=== PATIENT | female | born 1985 | race Caucasian/White ===

== ENCOUNTER 2018-09-09 18:34 | Observation (INO) | payer SELFPAY ==
[2018-09-09] MEDS ORDERED: NA CHLORIDE 0.9% 1,000 ML ONE (19:57)
[2018-09-09 20:05] LABS: Absolute Lymphocytes (CBC) 2.2 K/uL (0.7-4.9); Absolute Monocytes 0.8 K/uL (0.1-1.3); Absolute Neutrophil 5.9 K/uL (1.8-8.0); Basophils % 0.4 % (0-1.3); Eosinophils % 3.1 % (0-4.4); Hematocrit 34.5 % (36.0-45.0); Lymphocytes % 23.6 % (15.3-44.8); MPV 7.9 fL (7.6-11.3); Monocytes % 8.7 % (3.3-12.3); RBC Red Blood Cell Count 3.63 M/uL (3.86-4.86)
[2018-09-09 20:20] LABS: ALT/SGPT 15 U/L (12-78); AST/SGOT 9 U/L (15-37); Albumin 3.1 g/dL (3.4-5.0); Alkaline Phosphatase 28 U/L (45-117); BUN Blood Urea Nitrogen 16 mg/dL (7-18); Bicarbonate 28 mmol/L (21-32); Bilirubin Direct < 0.1 mg/dL (0-0.2); Bilirubin Total 0.1 mg/dL (0.2-1.0); Glucose Level 92 mg/dL (74-106); Lipase 128 U/L (73-393); Protein, Total 6.7 g/dL (6.4-8.2); Sodium Level 141 mmol/L (136-145)
--- NOTE | 2018-09-09 21:06 | RAD REPORT ---
EXAM DESCRIPTION: CT - Abdomen Pelvis W Contrast - 09/09/2018 8:37 pm CLINICAL HISTORY: Abdominal pain with vomiting COMPARISON: none. TECHNIQUE: Computed axial tomography of the abdomen pelvis was obtained. 100 cc Isovue-300 was admin istered intravenously. Oral contrast was not requested which limits evaluation of bowel. All CT scans are performed using dose optimization technique as appropriate and may include automated exposure control or mA/KV adjustment according to patient size. FINDINGS: The gallbladder is distended. Gallbladder wall appears borderline thickened Hepatic periportal edema. Spleen, pancreas, adrenal and kidneys appear unremarkable. There is no evidence of diverticulitis. The appendix is not clearly visualized. Small umbilical hernia contains fat. Increased density is present within the herniated fat 2 centimeter left ovarian cyst without significant free fluid . Moderate amount of stool within the colon Wall of the gastric antrum appears thickened IMPRESSION: Gallbladder distention. Borderline gallbladder wall thickening. Thickening of the wall of the gastric antrum suspicious for gastritis. Stranding within the fat of the periumbilical hernia may indicate strangulation and should be correla shoaib clinically
--- NOTE | 2018-09-10 01:55 | ER ---
Nurse's Notes [facility] Name: Fay Luna Age: 32 yrs Sex: Female : 1985 Arrival Date: 09/09/2018 Time: 18:40 Bed 26 Private MD: Diagnosis: Abdominal and pelvic pain;Supraumbilical hernia with fat stranding in the periumbilical area Presentation: 09/09 19:18 Presenting complaint: Patient states: N/V constipation and upper abdominal pain and aj chest pain for 1 week. Dx with hiatal hernia, has not followed up with surgeon. Transition of care: patient was not received from another setting of care. Onset of symptoms was September 02, 2018. Risk Assessment: Do you want to hurt yourself or someone else? Patient reports no desire to harm self or others. Initial Sepsis Screen: Does the patient meet any 2 criteria? No. Patient's initial sepsis screen is negative. Does the patient have a suspected source of infection? No. Patient's initial sepsis screen is negative. Care prior to arrival: None. 19:18 Method Of Arrival: Ambulatory aj 19:18 Acuity: LORENZO 3 aj Triage Assessment: 19:20 General: Appears in no apparent distress. comfortable, Behavior is calm, cooperative, aj drowsy. Pain: Complains of pain in diaphragm, epigastric area, right upper quadrant and left upper quadrant. Neuro: Level of Consciousness is awake, alert, obeys commands, Oriented to person, place, time, situation, Appropriate for age. Cardiovascular: Capillary refill < 3 seconds in bilateral fingers Patient's skin is warm and dry. Respiratory: Airway is patent Respiratory effort is even, unlabored, Respiratory pattern is regular, symmetrical. GI: Reports upper abdominal pain, constipation, nausea. Derm: Skin is intact, is healthy with good turgor, Skin is pink, warm \T\ dry. normal. 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 - Social history:: Smoking status: Patient uses tobacco products, smokes one-half pack cigarettes per day. - Ebola Screening: : Patient negative for fever greater than or equal to 101.5 degrees Fahrenheit, and additional compatible Ebola Virus Disease symptoms Patient denies exposure to infectious person Patient denies travel to an Ebola-affected area in the 21 days before illness onset No symptoms or risks identified at this time. Screenin:55 Abuse screen: Denies threats or abuse. Denies injuries from another. Nutritional kr2 screening: No deficits noted. Tuberculosis screening: No symptoms or risk factors identified. Fall Risk None identified. Assessment: 19:56 General: Appears in no apparent distress. uncomfortable, well groomed, well developed, kr2 well nourished, Behavior is calm, cooperative, appropriate for age. Pain: Complains of pain in epigastric area and diaphragm Pain radiates to back and chest Pain began gradually. Neuro: Level of Consciousness is awake, alert, obeys commands, Oriented to person, place, time, situation, Appropriate for age. Cardiovascular: Capillary refill < 3 seconds in bilateral fingers Patient's skin is warm and dry. Rhythm is regular. Respiratory: Airway is patent Respiratory effort is even, unlabored, Respiratory pattern is regular, symmetrical. GI: Abdomen is flat, non-distended, Bowel sounds present X 4 quads. Abd is soft and non tender X 4 quads. Reports nausea, diagnosed with hernia recently. EENT: Oral mucosa is moist. Derm: Skin is intact, is healthy with good turgor, Skin is pink, warm \T\ dry. Musculoskeletal: Circulation, motion, and sensation intact. 21:08 Reassessment: Patient appears in no apparent distress at this time. Patient and/or kr2 family updated on plan of care and expected duration. Pain level reassessed. Patient is alert, oriented x 3, equal unlabored respirations, skin warm/dry/pink. 22:30 Reassessment: Patient appears in no apparent distress at this time. Patient and/or kr2 family updated on plan of care and expected duration. Pain level reassessed. Patient is alert, oriented x 3, equal unlabored respirations, skin warm/dry/pink. 23:50 Reassessment: Patient appears in no apparent distress at this time. Patient and/or kr2 family updated on plan of care and expected duration. Pain level reassessed. Patient is alert, oriented x 3, equal unlabored respirations, skin warm/dry/pink. 09/10 00:35 Reassessment: Patient appears in no apparent distress at this time. Patient and/or kr2 family updated on plan of care and expected duration. Pain level reassessed. Patient is alert, oriented x 3, equal unlabored respirations, skin warm/dry/pink. Patient states feeling better. 01:38 Reassessment: dr moses came and saw the patient. mg2 Vital Signs: 09/09 19:20 BP 105 / 63; Pulse 68; Resp 17; Temp 98.2; Pulse Ox 99% on R/A; Weight 61.23 kg; Height aj 5 ft. 6 in. (167.64 cm); 21:09 BP 102 / 55; Pulse 66; Resp 17; Pulse Ox 99% on R/A; kr2 22:41 BP 108 / 70; Pulse 70; Resp 16; Pulse Ox 97% on R/A; kr2 23:45 BP 104 / 61; Pulse 68; Resp 17; Pulse Ox 99% ; kr2 09/10 02:22 BP 106 / 74; Pulse 70; Resp 18; Temp 98.4(O); Pulse Ox 100% on R/A; mg2 09/09 19:20 Body Mass Index 21.79 (61.23 kg, 167.64 cm) aj ED Course: 09/09 18:40 Patient arrived in ED. sb2 19:19 Triage completed. aj 19:20 Arm band placed on right wrist. Patient placed in waiting room, Patient notified of aj wait time. 19:34 Dave Guevara MD is Attending Physician. kdr 19:50 Inserted saline lock: 20 gauge in right antecubital area, using aseptic technique. kr2 Blood collected. Patient maintains SpO2 saturation greater than 95% on room air. 19:55 Patient has correct armband on for positive identification. Bed in low position. Call kr2 light in reach. Side rails up X 1. Adult w/ patient. patient monitor on. Pulse ox on. NIBP on. Door closed. Warm blanket given. Head of bed elevated. 20:12 Radiology exam delayed due to lab results not completed at this time. (BUN/Creatinine). nj 20:17 Radiology exam delayed due to lab results not completed at this time. (BUN/Creatinine). nj 20:[address] via wheelchair. nj 20:34 CT completed. Patient tolerated procedure well. Patient moved back from CT. vm2 20:39 CT Abd/Pelvis - W/Contrast In Process Unspecified. EDMS 21:45 Pillow given. jp3 23:09 Ultrasound completed. Patient tolerated well. sg3 23:16 US Abdomen Limited In Process Unspecified. EDMS 09/10 01:47 Zoë Zuluaga MD is Hospitalizing Provider. kdr 02:17 No provider procedures requiring assistance completed. Patient admitted, IV remains in mg2 place. 02:33 Joel Holden, RN is Primary Nurse. mg2 Administered Medications: 09/09 19:54 Drug: NS 0.9% 1000 ml Route: IV; Rate: 1 bolus; Site: right antecubital; kr2 09/10 02:33 Follow up: Response: No adverse reaction; IV Status: Completed infusion mg2 Outcome: 01:54 Decision to Hospitalize by Provider. kdr 02:34 Admitted to Tele accompanied by nurse, via wheelchair, room 408, with chart, Report mg2 called to DAY Rondon 02:34 Condition: stable 02:34 Instructed on the need for admit, Demonstrated understanding of instructions. 02:47 Patient left the ED. mg2 Signatures: Dispatcher [employer] EDMS Radha Jackson, RN RN aj Dave Guevara MD MD kdr Umang Ibrahim Victoria 2 Caty Lal, DAY RN 2 Margaret Swain 3 Christina Singh 2 Joel Holden, DAY RN mg2 Mohinder Fu jp3
--- NOTE | 2018-09-10 01:55 | EDPHYS ---
Physician Documentation [facility] Name: Fay Luna Age: 32 yrs Sex: Female : 1985 Arrival Date: 09/09/2018 Time: 18:40 Bed 26 Private MD: ED Physician Dave Guevara HPI: 09/09 20:39 This 32 yrs old Female presents to ER via Ambulatory with complaints of Chest kdr Pain, Abdominal Pain. 20:39 The patient presents with abdominal pain in the periumbilical area. abdominal kdr distention umbilical area. Onset: The symptoms/episode began/occurred She has had the pain/swelling for months and thinks that she has a hiatal hernia. She has not been evaluated before for this. She has black stools and occasional blood in her stool. The pain is generally mild to minimal with occasional severe pain.. The symptoms do not radiate. Associated signs and symptoms: Pertinent positives: blood in stools, constipation, nausea, Pertinent negatives: anorexia, chest pain, diarrhea, dysuria, fever, headache, palpitations, shortness of breath, vomiting, vomiting blood. The symptoms are described as achy, crampy, dull, intermittent, vague, waxing/waning. Modifying factors: The symptoms are alleviated by supine position, the symptoms are aggravated by movement, pressure, touching the area. Severity of pain: At its worst the pain was moderate severe just prior to arrival, in the emergency department the pain is unchanged. The patient has not experienced similar symptoms in the past. The patient has not recently seen a physician. 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 - Social history:: Smoking status: Patient uses tobacco products, smokes one-half pack cigarettes per day. - Ebola Screening: : Patient negative for fever greater than or equal to 101.5 degrees Fahrenheit, and additional compatible Ebola Virus Disease symptoms Patient denies exposure to infectious person Patient denies travel to an Ebola-affected area in the 21 days before illness onset No symptoms or risks identified at this time. ROS: 20:39 Constitutional: Negative for fever, chills, and weight loss, Eyes: Negative for injury, kdr pain, redness, and discharge, Neck: Negative for injury, pain, and swelling, Cardiovascular: Negative for chest pain, palpitations, and edema, Respiratory: Negative for shortness of breath, cough, wheezing, and pleuritic chest pain, Back: Negative for injury and pain, : Negative for injury, bleeding, discharge, and swelling, MS/Extremity: Negative for injury and deformity, Skin: Negative for injury, rash, and discoloration, Neuro: Negative for headache, weakness, numbness, tingling, and seizure activity. Psych: Negative for depression, anxiety, suicide ideation, homicidal ideation, and hallucinations, Allergy/Immunology: Negative for hives, rash, and allergies, Endocrine: Negative for neck swelling, polydipsia, polyuria, polyphagia, and marked weight changes, Hematologic/Lymphatic: Negative for swollen nodes, abnormal bleeding, and unusual bruising. 20:39 Abdomen/GI: Positive for abdominal pain, black/tarry stool, rectal bleeding, Negative for diarrhea, abdominal distension, anorexia, dysphagia, hematemesis, bowel incontinence. Exam: 20:39 Constitutional: This is a well developed, well nourished patient who is awake, alert, kdr and in no acute distress. Head/Face: Normocephalic, atraumatic. Eyes: Pupils equal round and reactive to light, extra-ocular motions intact. Lids and lashes normal. Conjunctiva and sclera are non-icteric and not injected. Cornea within normal limits. Periorbital areas with no swelling, redness, or edema. Neck: Trachea midline, no thyromegaly or masses palpated, and no cervical lymphadenopathy. Supple, full range of motion without nuchal rigidity, or vertebral point tenderness. No Meningismus. Chest/axilla: Normal chest wall appearance and motion. Nontender with no deformity. No lesions are appreciated. Cardiovascular: Regular rate and rhythm with a normal S1 and S2. No gallops, murmurs, or rubs. Normal PMI, no JVD. No pulse deficits. Respiratory: Lungs have equal breath sounds bilaterally, clear to auscultation and percussion. No rales, rhonchi or wheezes noted. No increased work of breathing, no retractions or nasal flaring. Back: No spinal tenderness. No costovertebral tenderness. Full range of motion. Skin: Warm, dry with normal turgor. Normal color with no rashes, no lesions, and no evidence of cellulitis. MS/ Extremity: Pulses equal, no cyanosis. Neurovascular intact. Full, normal range of motion. Neuro: Awake and alert, GCS 15, oriented to person, place, time, and situation. Cranial nerves II-XII grossly intact. Motor strength 5/5 in all extremities. Sensory grossly intact. Cerebellar exam normal. Normal gait. Psych: Awake, alert, with orientation to person, place and time. Behavior, mood, and affect are within normal limits. 20:39 Abdomen/GI: Inspection: abdomen appears normal, Bowel sounds: normal, active, all quadrants, Palpation: soft, mild abdominal tenderness, in the umbilical area, supraumbilical, mass, is not appreciated, rebound tenderness, is not appreciated. Vital Signs: 19:20 BP 105 / 63; Pulse 68; Resp 17; Temp 98.2; Pulse Ox 99% on R/A; Weight 61.23 kg; Height aj 5 ft. 6 in. (167.64 cm); 21:09 BP 102 / 55; Pulse 66; Resp 17; Pulse Ox 99% on R/A; kr2 22:41 BP 108 / 70; Pulse 70; Resp 16; Pulse Ox 97% on R/A; kr2 23:45 BP 104 / 61; Pulse 68; Resp 17; Pulse Ox 99% ; kr2 09/10 02:22 BP 106 / 74; Pulse 70; Resp 18; Temp 98.4(O); Pulse Ox 100% on R/A; mg2 09/09 19:20 Body Mass Index 21.79 (61.23 kg, 167.64 cm) MDM: 09/09 20:39 Data reviewed: vital signs, nurses notes, lab test result(s), radiologic studies. kdr Counseling: I had a detailed discussion with the patient and/or guardian regarding: the historical points, exam findings, and any diagnostic results supporting the discharge/admit diagnosis, lab results, radiology results. 09/10 01:54 Patient medically screened. kdr 09/09 19:44 Order name: Basic Metabolic Panel; Complete Time: 21:03 kdr 09/09 19:44 Order name: CBC with Diff; Complete Time: 21:03 kdr 09/09 19:44 Order name: Creatinine for Radiology; Complete Time: 21:03 [facility] 09/09 19:44 Order name: Hepatic Function; Complete Time: 21:03 [facility] 09/09 19:44 Order name: Lipase; Complete Time: 21:03 [facility] 09/09 19:44 Order name: CT Abd/Pelvis - W/Contrast; Complete Time: 21:47 [facility] 09/09 19:44 Order name: IV Saline Lock; Complete Time: 19:54 [facility] 09/09 19:44 Order name: Labs collected and sent; Complete Time: 19:54 [facility] 09/09 22:03 Order name: US Abdomen Limited kdr Administered Medications: 09/09 19:54 Drug: NS 0.9% 1000 ml Route: IV; Rate: 1 bolus; Site: right antecubital; kr2 09/10 02:33 Follow up: Response: No adverse reaction; IV Status: Completed infusion mg2 Disposition: 09/10/18 01:54 Hospitalization ordered by Zoë Zuluaga for Observation. Preliminary diagnosis are Abdominal and pelvic pain, Supraumbilical hernia with fat stranding in the periumbilical area. - Bed requested for Telemetry/MedSurg (observation). - Status is Observation. mg2 - Condition is Fair. - Problem is an acute exacerbation. - Symptoms have improved. UTI on Admission? No Signatures: Dispatcher [employer] EDMS Jeni Torres RN RN mw Myers, Amanda, RN RN aj Rittger, Kevin, MD MD [facility] Caty Lal RN RN kr2 Joel Holden RN RN mg2 Corrections: (The following items were deleted from the chart) 02:13 01:54 Hospitalization Ordered by Zoë Zuluaga MD for Observation. Preliminary mw diagnosis is Abdominal and pelvic pain; Supraumbilical hernia with fat stranding in the periumbilical area. Bed requested for Telemetry/MedSurg (observation). Status is Observation. Condition is Fair. Problem is an acute exacerbation. Symptoms have improved. UTI on Admission? No. kdr 02:47 02:13 09/10/2018 01:54 Hospitalization Ordered by Zoë Zuluaga MD for Observation. mg2 Preliminary diagnosis is Abdominal and pelvic pain; Supraumbilical hernia with fat stranding in the periumbilical area. Bed requested for Telemetry/MedSurg (observation). Status is Observation. Condition is Fair. Problem is an acute exacerbation. Symptoms have improved. UTI on Admission? No. mw
[2018-09-10] MEDS ORDERED: ONDANSETRON 4 MG/2 ML VIAL IV PRN (03:26)
[2018-09-10] MEDS ORDERED: ACETAMINOPHEN 500 MG TAB PO PRN (03:26)
[2018-09-10] MEDS: NA CHLORIDE 0.9% 1,000 ML IV SCH ×2 (04:15→14:47)
[2018-09-10 04:29] VITALS: BMI 21.7
--- NOTE | 2018-09-10 04:48 | P.HP ---
Certification for Inpatient Patient admitted to: Observation With expected LOS: <2 Midnights Practitioner: I am a practitioner with admitting privileges, knowledge of patient current condition, hospital course, and medical plan of care. Services: Services provided to patient in accordance with Admission requirements found in Title 42 Section 412.3 of the Code of Federal Regulations Patient History Date of Service: 09/10/18 Reason for admission: abdominal pain History of Present Illness: Ms Luna is a 32 years old woman who start about 2 weeks ago with recurrent episodes of abdominal pain. Since 2 days ago her pain got worse, 10/10 of intensity, localized in epigastic area, readiated to her chest and lower abdomen , associated with nausea and vomiting. She denied fever or chills. Lab work shows normal WBC count. CT abd/pelvis shows signs concerning with acute cholecystitis and also a periumbilical hernia with surrounding stranding fat concerning for incarceration. At arrival she was afebrile, with stable vital signs. Allergies No Known Allergies Allergy (Verified 09/10/18 03:07) Home medications list reviewed: Yes Home Medications: NK [No Home Meds] 09/10/18 - Past Medical/Surgical History Has patient received pneumonia vaccine in the past: No Diabetic: No -: umbilical hernia -: cyst removal both breast - Family History Mother -: Cancer Notes: breast ca Father -: Heart disease - Social History Smoking Status: Current every day smoker Counseled patient to stop smoking for: less than 10 minutes Alcohol use: No CD- Drugs: No Caffeine use: Yes Place of Residence: Home Review of Systems 10-point ROS is otherwise unremarkable Physical Examination - Vital Signs Temperature: 98.4 F Blood Pressure: 106/74 Pulse: 70 Respirations: 18 Pulse Ox (%): 99 - Physical Exam General: Alert, In no apparent distress HEENT: Atraumatic, PERRLA, Mucous membr. moist/pink, EOMI, Sclerae nonicteric Neck: Supple, 2+ carotid pulse no bruit, No LAD, Without JVD or thyroid abnormality Respiratory: Clear to auscultation bilaterally, Normal air movement Cardiovascular: Regular rate/rhythm, Normal S1 S2 Gastrointestinal: Normal bowel sounds, Tenderness (periumbilical area tendet to palpation) Musculoskeletal: No tenderness Integumentary: No rashes Neurological: Normal speech, Normal strength at 5/5 x4 extr, Normal tone, Normal affect Lymphatics: No axilla or inguinal lymphadenopathy - Studies Laboratory Data (last 24 hrs) 09/09/18 19:50: Creatinine 0.65 09/09/18 19:50: WBC 9.2, Hgb 11.6 L, Hct 34.5 L, Plt Count 307 09/09/18 19:50: Sodium 141, Potassium 4.0, BUN 16, Creatinine 0.65, Glucose 92, Total Bilirubin 0.1 L, AST 9 L, ALT 15, Alkaline Phosphatase 28 L, Lipase 128 Assessment and Plan - Problems (Diagnosis) (1) Abdominal pain Current Visit: Yes Status: Acute Qualifiers: Abdominal location: periumbilical Qualified Code(s): R10.33 - Periumbilical pain (2) possible cholecystitis Current Visit: Yes Status: Acute (3) Periumbilical hernia Current Visit: Yes Status: Acute - Plan The patient has been evaluated by Dr Carballo, and he recommended to start empiric antibiotic treatment, and re-evaluate the patient in AM for potential surgical procedure. Will keep the patient NPO, start IV fluids. - Advance Directives Does patient have a Living Will: No Does patient have a Durable POA for Healthcare: No - Code Status/Comfort Care Code Status Assessed: Yes Code Status: Full Code
[2018-09-10 06:20] LABS: Absolute Lymphocytes (CBC) 2.3 K/uL (0.7-4.9); Absolute Monocytes 1.3 K/uL (0.1-1.3); Absolute Neutrophil 6.9 K/uL (1.8-8.0); Basophils % 0.3 % (0-1.3); Eosinophils % 3.5 % (0-4.4); Hematocrit 32.6 % (36.0-45.0); Lymphocytes % 21.3 % (15.3-44.8); Monocytes % 12.2 % (3.3-12.3); RBC Red Blood Cell Count 3.43 M/uL (3.86-4.86)
[2018-09-10 06:32] LABS: BUN Blood Urea Nitrogen 13 mg/dL (7-18); Bicarbonate 29 mmol/L (21-32); Glucose Level 106 mg/dL (74-106); Magnesium 1.9 mg/dL (1.8-2.4); Potassium 3.7 mmol/L (3.5-5.1); Sodium Level 141 mmol/L (136-145)
[2018-09-10] MEDS ORDERED: SODIUM CHLORIDE 0.9% 10ML INJ IV PRN (08:26)
[2018-09-10] MEDS: CIPROFLOXACIN 400mg IV 400 MG/200 ML BAG IV SCH ×2 (08:34→20:37)
[2018-09-10] MEDS: METRONIDAZOLE 500mg IVPB 500 MG/100 ML BAG IV SCH ×2 (08:34→16:39)
[2018-09-10] MEDS: MORPHINE 4 MG/ML SYR IV PRN ×3 (08:44→20:38)
[2018-09-10] MEDS: PANTOPRAZOLE 40 MG INJ IVP SCH (08:45)
[2018-09-10 08:46] LABS: Specific Gravity >= 1.030 (1.005-1.030)
[2018-09-10 08:48] LABS: Urine Appearance CLEAR; Urine Bilirubin NEGATIVE (NEG); Urine Color YELLOW; Urine Glucose 2+ (NEG); Urine Specific Gravity >1.030 (1.005-1.030)
[2018-09-10 08:49] LABS: Urine Blood NEGATIVE (NEG); Urine Microscopic Reflex NO UMIC; Urine Protein NEGATIVE (NEG); Urine Urobilinogen 0.2 mg/dL (0.2-1.0)
[2018-09-10] MEDS ORDERED: KCL 20 MEQ/100 mL IVPB 20 MEQ/100 ML BAG IV SCH (09:00)
--- NOTE | 2018-09-10 09:26 | RAD REPORT ---
EXAM DESCRIPTION: US - Abdomen Exam Limited - 09/09/2018 11:16 pm CLINICAL HISTORY: Right upper quadrant pain. Preliminary findings provided at the time of the study. COMPARISON: September 09 CT imaging FINDINGS: Gallbladder size is normal. No gallstones, wall thickening or pericholecystic fluid. Commo n bile duct is normal with no common duct stone identified. The liver and spleen show no suspicious f indings. The pancreas is normal. No hydronephrosis or suspicious mass in either kidney. Aorta and IVC show no suspicious findings. No ascites or bulky lymphadenopathy. IMPRESSION: Normal abdominal ultrasound.
--- NOTE | 2018-09-10 09:29 | P.PN ---
Subjective Date of Service: 09/10/18 Primary Care Provider: none Chief Complaint: abdominal pain Subjective: Other (Pain is controlled.) Physical Examination - Vital Signs Temperature: 99.3 F Blood Pressure: 93/55 Pulse: 77 Respirations: 16 Pulse Ox (%): 97 - Physical Exam General: Alert, In no apparent distress, Oriented x3, Cooperative HEENT: Atraumatic Neck: Supple Respiratory: Clear to auscultation bilaterally, Normal air movement Cardiovascular: Normal pulses, Regular rate/rhythm Gastrointestinal: Normal bowel sounds, Soft and benign, Non-distended, No masses , No rebound, No guarding, Tenderness (Pain to the right upper quadrant and umbilical region) Musculoskeletal: No erythema, No tenderness, No warmth Integumentary: No tenderness/swelling, No erythema, No warmth, No cyanosis Neurological: Normal speech, Normal strength at 5/5 x4 extr, Normal tone, Normal affect Lymphatics: No axilla or inguinal lymphadenopathy - Studies Laboratory Data (last 24 hrs) 09/09/18 19:50: Creatinine 0.65 09/09/18 19:50: WBC 9.2, Hgb 11.6 L, Hct 34.5 L, Plt Count 307 09/09/18 19:50: Sodium 141, Potassium 4.0, BUN 16, Creatinine 0.65, Glucose 92, Total Bilirubin 0.1 L, AST 9 L, ALT 15, Alkaline Phosphatase 28 L, Lipase 128 Medications List Reviewed: Yes Assessment & Plan Discharge Plan: Home Plan to discharge in: 48 Hours Physician Review Additional Text: Impression: Abdominal pain likely secondary to acute cholecystitis complicated with possible incarcerated umbilical hernia Anemia, mild likely iron deficiency Plan: Abdominal pain likely secondary to acute cholecystitis complicated with possible incarcerated umbilical hernia: Patient admitted for further evaluation. Surgery consulted. Patient currently NPO for possible need for intervention. Await ultrasound findings. Continue IV antibiotic therapy, pain control, and antiemetics. Continue with IV fluids. Will monitor closely. Await further recommendations from surgery. Anemia, mild likely iron deficiency: Will monitor closely. Will check iron and B12 studies. Time Spent Managing Pts Care (In Minutes): 55
[2018-09-10 10:27] LABS: Ferritin 43.8 ng/mL (8-388)
--- NOTE | 2018-09-10 10:37 | P.CNS ---
Date of Consult: 09/10/18 PC: This 32-year-old female presents emergency room with severe abdominal pain for diagnosis and treatment. HPC: Patient is been sick for the last few months. States that she has just felt on well. Has had pain and discomfort in the upper portion of her abdomen. PMH: 5, para 5. PSHx: NAD SOC: No known allergy SYS REVIEW: No cough, wheeze, shortness of breath. No chest pain or palpitations. Takes just Tylenol extra-strength at home for any pain or discomfort. No fatty food intolerance. O/E awake alert sitting on the edge of the bed HEENT: Not jaundiced Chest: Chest movement equal bilaterally ABD: Small umbilical hernia is reduced LOCO: Intact DATA: CT scan shows some inflammation around the antrum of the stomach. Her gallbladder ultrasound is negative. IMPRESSION: On reviewing the patient, her labs, and the CT scan as well as ultrasound report, I feel this is more consistent with peptic ulcer disease. PLAN: Recommend patient be started on medication for peptic ulcer disease. Once it is resolved should be worked up as an outpatient for a HIDA scan regarding possible gallbladder dysfunction. However in the view of the fact the patient has not been eating well over the last 2 weeks the results at this time would be equivocal. An appointment with a angle shear operator regarding possible endoscopy to would be appropriate. She does not require any surgical intervention at the moment.
[2018-09-10] MEDS ORDERED: TRAMADOL HCL 50 MG TAB PO PRN (17:00)
[2018-09-10] MEDS ORDERED: HYDROCODONE/APAP 7.5/325 MG TAB PO PRN (17:00)
[2018-09-10 22:49] VITALS: O2SAT 99
[2018-09-11] MEDS: NA CHLORIDE 0.9% 1,000 ML IV SCH ×2 (01:22→09:26)
[2018-09-11] MEDS: METRONIDAZOLE 500mg IVPB 500 MG/100 ML BAG IV SCH ×2 (01:22→09:39)
[2018-09-11] MEDS: MORPHINE 4 MG/ML SYR IV PRN (02:52)
[2018-09-11 05:44] LABS: Absolute Lymphocytes (CBC) 2.6 K/uL (0.7-4.9); Absolute Neutrophil 4.3 K/uL (1.8-8.0); Basophils % 0.3 % (0-1.3); Hematocrit 30.9 % (36.0-45.0); Lymphocytes % 31.7 % (15.3-44.8); MPV 8.3 fL (7.6-11.3); Monocytes % 12.5 % (3.3-12.3); RBC Red Blood Cell Count 3.26 M/uL (3.86-4.86)
[2018-09-11 05:56] LABS: BUN Blood Urea Nitrogen 9 mg/dL (7-18); Bicarbonate 27 mmol/L (21-32); Glucose Level 101 mg/dL (74-106); Magnesium 2.1 mg/dL (1.8-2.4); Potassium 3.5 mmol/L (3.5-5.1); Sodium Level 143 mmol/L (136-145)
[2018-09-11] MEDS ORDERED: POTASSIUM 25 MEQ EFFERV TAB PO ONE (06:10)
[2018-09-11] MEDS: PANTOPRAZOLE 40 MG INJ IVP SCH (09:40)
[2018-09-11] MEDS: CIPROFLOXACIN 400mg IV 400 MG/200 ML BAG IV SCH (09:40)
--- NOTE | 2018-09-11 10:04 | P.DS ---
Admission Date: 09/10/18 Discharge Date: 09/11/18 Primary Care Provider: none Disposition: ROUTINE DISCHARGE Discharge Condition: GOOD Reason for Admission: abdominal pain Consultations: Surgery: Dr. Holloway Procedures: CT scan: COMPARISON: none. TECHNIQUE: Computed axial tomography of the abdomen pelvis was obtained. 100 cc Isovue-300 was administered intravenously. Oral contrast was not requested which limits evaluation of bowel. All CT scans are performed using dose optimization technique as appropriate and may include automated exposure control or mA/KV adjustment according to patient size. FINDINGS: The gallbladder is distended. Gallbladder wall appears borderline thickened Hepatic periportal edema. Spleen, pancreas, adrenal and kidneys appear unremarkable. There is no evidence of diverticulitis. The appendix is not clearly visualized. Small umbilical hernia contains fat. Increased density is present within the herniated fat 2 centimeter left ovarian cyst without significant free fluid . Moderate amount of stool within the colon Wall of the gastric antrum appears thickened IMPRESSION: Gallbladder distention. Borderline gallbladder wall thickening. Thickening of the wall of the gastric antrum suspicious for gastritis. Stranding within the fat of the periumbilical hernia may indicate strangulation and should be correlated clinically ABUS: COMPARISON: September 09 CT imaging FINDINGS: Gallbladder size is normal. No gallstones, wall thickening or pericholecystic fluid. Common bile duct is normal with no common duct stone identified. The liver and spleen show no suspicious findings. The pancreas is normal. No hydronephrosis or suspicious mass in either kidney. Aorta and IVC show no suspicious findings. No ascites or bulky lymphadenopathy. IMPRESSION: Normal abdominal ultrasound. Medical problem list: Epigastric abdominal pain likely related to gastritis with GERD Possible underlying gallbladder dysfunction Anemia with iron deficiency Umbilical hernia Plan: Abdominal pain likely secondary to acute cholecystitis complicated with possible incarcerated umbilical hernia: Patient admitted for further evaluation. Surgery consulted. Patient currently NPO for possible need for intervention. Await ultrasound findings. Continue IV antibiotic therapy, pain control, and antiemetics. Continue with IV fluids. Will monitor closely. Await further recommendations from surgery. Anemia, mild likely iron deficiency: Will monitor closely. Will check iron and B12 studies. Time Spent Managing Pts Care (In Minutes): 55 Brief History of Present Illness: 32-year-old female presented emergency room with epigastric pain. Initial CT scan showed possible gallbladder dysfunction with gastritis. Patient was admitted for further treatment and evaluation. Hospital Course: Patient presented with epigastric abdominal pain. Patient admitted for further evaluation. CT scan revealed possible underlying gastritis and gallbladder dysfunction. Abdominal ultrasound shows normal gallbladder. Patient seen evaluated by surgery. No intervention was required. Her diet was advanced. Patient tolerated her diet, pain improved. At discharge patient will continue with Protonix 40 mg 1 pill once daily. Recommendation is for the patient to follow up with GI as an outpatient to further evaluate. Patient will require endoscopy evaluation to further address. Dietary and lifestyle modification education will be provided. Recommend no further use of nonsteroidal anti- inflammatories. Patient with possible underlying gallbladder dysfunction. Abdominal ultrasound unremarkable. Recommendation is for the patient to follow up with GI for further evaluation. Patient may require HIDA scan as an outpatient to further assess. Patient found to have mild iron deficiency. At discharge she will continue with iron 325 mg daily. Recommendation to recheck lab-CBC in 2-4 weeks to monitor progress. Patient has an umbilical hernia. No strangulation was identified. Recommendations for the patient follow up with surgery in 2-4 weeks to further address. Patient may require surgery in the future. Recommend no heavy lifting , pushing or pulling. Vital Signs/Physical Exam: Temp Pulse Resp BP Pulse Ox 99 F 76 16 103/62 99 09/11/18 08:00 09/11/18 08:00 09/11/18 08:00 09/11/18 08:00 09/11/18 08:00 General: Alert, In no apparent distress, Oriented x3, Cooperative HEENT: Atraumatic Neck: Supple Respiratory: Clear to auscultation bilaterally, Normal air movement Cardiovascular: Normal pulses, Regular rate/rhythm Gastrointestinal: Normal bowel sounds, Soft and benign, Non-distended, No tenderness, No masses, No rebound, No guarding Musculoskeletal: No erythema, No tenderness, No warmth Integumentary: No tenderness/swelling, No erythema, No warmth, No cyanosis Neurological: Normal speech, Normal strength at 5/5 x4 extr, Normal tone, Normal affect Laboratory Data at Discharge: WBC 8.2 K/uL (4.3-10.9) D 09/11/18 05:20 Hgb 10.4 g/dL (12.0-15.0) L 09/11/18 05:20 Hct 30.9 % (36.0-45.0) L 09/11/18 05:20 Plt Count 305 K/uL (152-406) 09/11/18 05:20 Sodium 143 mmol/L (136-145) 09/11/18 05:20 Potassium 3.5 mmol/L (3.5-5.1) 09/11/18 05:20 BUN 9 mg/dL (7-18) 09/11/18 05:20 Creatinine 0.59 mg/dL (0.55-1.3) 09/11/18 05:20 Glucose 101 mg/dL (74-106) 09/11/18 05:20 Magnesium 2.1 mg/dL (1.8-2.4) 09/11/18 05:20 Total Bilirubin 0.1 mg/dL (0.2-1.0) L 09/09/18 19:50 AST 9 U/L (15-37) L 09/09/18 19:50 ALT 15 U/L (12-78) 09/09/18 19:50 Alkaline Phosphatase 28 U/L (45-117) L 09/09/18 19:50 Lipase 128 U/L (73-393) 09/09/18 19:50 Home Medications: Ferrous Sulfate [Iron] 325 mg PO DAILY #30 tablet 09/11/18 Pantoprazole [Protonix Tab] 40 mg PO DAILY #30 tab 09/11/18 New Medications: Ferrous Sulfate [Iron] 325 mg PO DAILY #30 tablet Pantoprazole [Protonix Tab] 40 mg PO DAILY #30 tab Patient Discharge Instructions: 1. Patient will need to follow up with a PCP to establish care and follow up this hospitalization. 2. Patient presented with epigastric abdominal pain. Patient admitted for further evaluation. CT scan revealed possible underlying gastritis and gallbladder dysfunction. Abdominal ultrasound shows normal gallbladder. Patient seen evaluated by surgery. No intervention was required. Her diet was advanced. Patient tolerated her diet, pain improved. At discharge patient will continue with Protonix 40 mg 1 pill once daily. Recommendation is for the patient to follow up with GI as an outpatient to further evaluate. Patient will require endoscopy evaluation to further address. Dietary and lifestyle modification education will be provided. Recommend no further use of nonsteroidal anti- inflammatories. 3. Patient with possible underlying gallbladder dysfunction. Abdominal ultrasound unremarkable. Recommendation is for the patient to follow up with GI for further evaluation. Patient may require HIDA scan as an outpatient to further assess. 4. Patient found to have mild iron deficiency. At discharge she will continue with iron 325 mg daily. Recommendation to recheck lab-CBC in 2-4 weeks to monitor progress. 5. Patient has an umbilical hernia. No strangulation was identified. Recommendations for the patient follow up with surgery in 2-4 weeks to further address. Patient may require surgery in the future. Recommend no heavy lifting, pushing or pulling. Diet: AHA Activity: No lifting more than 10 lbs Time spent managing pt's care (in minutes): 55
[2018-09-11 12:36] VITALS: BP 102/58; TEMP 99.3
== END 2018-09-11 14:05 | disposition home or self-care (01) ==
LOC: ER 18:34 → ERHOLD 09-10 01:28 → 4TH 09-10 02:40
PROVIDERS: ADMIT Internal Medicine; ATTEND Internal Medicine
DX: R10.13 Epigastric pain (principal); K42.9 Umbilical hernia without obstruction or gangrene; D64.9 Anemia, unspecified
CPT/HCPCS: 36415; 74177; 76705; 80048; 80076; 81003; 81025; 82607; 82728; 83540; 83690; 83735; 84466; 85025; 96360; 96361; 99285; C9113; G0378; J0744; J7030; Q9967

== ENCOUNTER 2019-09-08 23:24 | Inpatient (IN) | payer BC, SELFPAY ==
--- OUTSIDE RECORDS SUMMARY | 2019-09-08 23:26 | XMS REPORT ---
:1985 Author Organization [employer] Care Team Providers Name Role Phone Martha Braswell Provider Role Unavailable Allergies, Adverse Reactions, Alerts Substance Reaction Event Type Tylenol # 3 Info Not Available Drug Allergy Problems Problem Type Condition Code Onset Dates Condition Status Problem Nausea and vomiting, intractability R11.2 Active of vomiting not specified, unspecified vomiting type Problem Gastroesophageal reflux disease, K21.9 Active esophagitis presence not specified Problem Circulation problem I99.9 Active Problem Paresthesias R20.2 Active Assessment Paresthesias R20.2 Active Problem Chronic pain syndrome G89.4 Active Assessment History of opioid abuse F11.11 Active Problem Weight loss R63.4 Active Problem Irritable bowel K58.9 Active Problem Pain of upper abdomen R10.10 Active Problem Reflux K21.9 Active Problem Migraines G43.909 Active Assessment Paraumbilical hernia K42.9 Active Assessment Gastroesophageal reflux disease, K21.9 Active esophagitis presence not specified Assessment Family history of thyroid disease Z83.49 Active Assessment Weight loss R63.4 Active Problem History of opioid abuse F11.11 Active Assessment Nausea and vomiting, intractability R11.2 Active of vomiting not specified, unspecified vomiting type Problem Paraumbilical hernia K42.9 Active Assessment Pain of upper abdomen R10.10 Active Problem Family history of thyroid disease Z83.49 Active Medications Medication Code Code Instructions Start End Status Dosage System Date Date Tylenol [facility] [address]-96 500mg Orally 4 Active not defined times a day Dicyclomine ND 08376259383 20 MG Orally Jun 21, Jul 01, Active 1 tablet as HCl Four times a 2018 2018 needed for day stomach pain Suboxone [facility] 60154410211 8-2 MG Active 1 film Sublingual under the Twice a day tongue and allow to dissolve Omeprazole ND 90566717070 40 MG Orally Active 1 capsule Once a day Results No Known Results Summary Purpose [employer] Submission
[2019-09-09] MEDS ORDERED: NA CHLORIDE 0.9% 1,000 ML ONE ×2 (00:01→03:22)
[2019-09-09 00:11] LABS: Urine Blood NEGATIVE (NEG); Urine Glucose NEGATIVE (NEG); Urine Protein TRACE (NEG); Urine Specific Gravity >1.030 (1.005-1.030)
[2019-09-09 00:23] LABS: Basophils % 0.5 % (0-1.3); Hematocrit 32.3 % (36.0-45.0); Lymphocytes % 29.1 % (15.3-44.8); MPV 7.3 fL (7.6-11.3); RBC Red Blood Cell Count 3.33 M/uL (3.86-4.86)
[2019-09-09] MEDS ORDERED: FENTANYL CITR 100 MCG/2 ML ONE (00:23)
[2019-09-09] MEDS ORDERED: KETOROLAC 30 MG/ML INJ ONE (00:23)
[2019-09-09 00:34] LABS: Urine Bacteria 20-50 /HPF (<20); Urine Culture Reflex Order NOT NEEDED; Urine RBC <5 /HPF (NONE SEEN)
[2019-09-09 00:43] LABS: ALT/SGPT 14 U/L (12-78); AST/SGOT 12 U/L (15-37); Albumin 2.9 g/dL (3.4-5.0); Alkaline Phosphatase 37 U/L (45-117); BUN Blood Urea Nitrogen 14 mg/dL (7-18); Bicarbonate 27 mmol/L (21-32); Bilirubin Direct < 0.1 mg/dL (0-0.2); Glucose Level 121 mg/dL (74-106); Lipase 113 U/L (73-393); Potassium 3.7 mmol/L (3.5-5.1); Protein, Total 6.5 g/dL (6.4-8.2); Sodium Level 141 mmol/L (136-145)
[2019-09-09 00:44] LABS: Bilirubin Total < 0.1 mg/dL (0.2-1.0)
--- NOTE | 2019-09-09 03:09 | ER ---
Nurse's Notes [facility] Name: Fay Luna Age: 33 yrs Sex: Female : 1985 Arrival Date: 09/08/2019 Time: 23:27 Bed 15 Private MD: Martha Braswell Diagnosis: Acute cholecystitis Presentation: 09/08 23:43 Presenting complaint: Patient states: C/O RUQ pain that started a month ago, got severe wh a week ago. Associated Symptoms of Nausea and vomiting. Pt stated she had same abdominal pain a year ago and she was admitted. Transition of care: patient was not received from another setting of care. Onset of symptoms was September 08, 2019. Risk Assessment: Do you want to hurt yourself or someone else? Patient reports no desire to harm self or others. Initial Sepsis Screen: Does the patient meet any 2 criteria? No. Patient's initial sepsis screen is negative. Does the patient have a suspected source of infection? Yes: Acute abdominal pain. Care prior to arrival: None. 23:43 Method Of Arrival: Ambulatory 23:43 Acuity: LORENZO 3 CUSTOMER SUPPORT REPRESENTATIVE: 23:47 LMP 07/2019 Historical: - Allergies: 23:46 No Known Allergies; - PMHx: 23:46 None; - Immunization history:: Adult Immunizations up to date. - Social history:: Smoking status: Patient uses tobacco products, denies chronic smoking, but will smoke occasionally. - Ebola Screening: : Patient negative for fever greater than or equal to 101.5 degrees Fahrenheit, and additional compatible Ebola Virus Disease symptoms Patient denies exposure to infectious person. Screenin:46 Abuse screen: Denies threats or abuse. Denies injuries from another. Nutritional screening: No deficits noted. Tuberculosis screening: No symptoms or risk factors identified. Fall Risk None identified. Assessment: 23:48 General: Appears in no apparent distress. Behavior is calm, cooperative, appropriate for age. Pain: Complains of pain in right upper quadrant Pain radiates to back Pain currently is 9 out of 10 on a pain scale. Quality of pain is described as aching, Pain began 1 month ago. Neuro: Level of Consciousness is awake, alert, obeys commands, Oriented to person, place, time, situation, Appropriate for age. Cardiovascular: Heart tones S1 S2. Respiratory: Airway is patent Respiratory effort is even, unlabored, Respiratory pattern is regular, symmetrical, Breath sounds are clear bilaterally. GI: Abdomen is flat, non-distended, Bowel sounds present X 4 quads. Abd is soft. : No signs and/or symptoms were reported regarding the genitourinary system. EENT: No signs and/or symptoms were reported regarding the EENT system. Derm: Skin is intact, is healthy with good turgor, Skin is pink, warm \T\ dry. normal. Musculoskeletal: Circulation, motion, and sensation intact. 09/09 00:42 Reassessment: Patient appears in no apparent distress at this time. No changes from previously documented assessment. Patient and/or family updated on plan of care and expected duration. Pain level reassessed. Patient is alert, oriented x 3, equal unlabored respirations, skin warm/dry/pink. Oral contrast done notified CT. 01:30 Reassessment: Patient appears in no apparent distress at this time. No changes from previously documented assessment. Patient and/or family updated on plan of care and expected duration. Pain level reassessed. Patient is alert, oriented x 3, equal unlabored respirations, skin warm/dry/pink. 02:30 Reassessment: Patient appears in no apparent distress at this time. No changes from previously documented assessment. Patient and/or family updated on plan of care and expected duration. Pain level reassessed. Patient is alert, oriented x 3, equal unlabored respirations, skin warm/dry/pink. Patient states symptoms have improved. 03:31 Reassessment: Patient appears in no apparent distress at this time. No changes from previously documented assessment. Patient and/or family updated on plan of care and expected duration. Pain level reassessed. Patient is alert, oriented x 3, equal unlabored respirations, skin warm/dry/pink. MD at bedside explaining POC need for admit. 04:30 Reassessment: Patient appears in no apparent distress at this time. No changes from previously documented assessment. Patient and/or family updated on plan of care and expected duration. Pain level reassessed. Patient is alert, oriented x 3, equal unlabored respirations, skin warm/dry/pink. Patient states feeling better. Patient states symptoms have improved. Vital Signs: 09/08 23:45 BP 114 / 72; Pulse 91; Resp 18; Temp 98.2; Pulse Ox 99% ; Weight 58.97 kg; Height 5 ft. 5 in. (165.10 cm); Pain 7/10; 09/09 00:42 BP 91 / 63; Pulse 69; Resp 18; Pulse Ox 100% on R/A; wh 01:30 BP 100 / 73; Pulse 64; Resp 18; Pulse Ox 100% on R/A; wh 02:30 BP 102 / 72; Pulse 66; Resp 18; Pulse Ox 100% on R/A; 03:32 BP 130 / 83; Pulse 80; Resp 18; Pulse Ox 100% ; wh 04:30 BP 109 / 70; Pulse 75; Resp 16; Pulse Ox 99% ; 09/08 23:45 Body Mass Index 21.63 (58.97 kg, 165.10 cm) ED Course: 09/08 23:27 Patient arrived in ED. es 23:27 Martha Braswell MD is Private Physician. es 23:31 Audra Sandoval is Primary Nurse. 23:39 Avani Pierre FNP-C is [facility]. snw 23:39 Real Leon MD is Attending Physician. snw 23:45 Triage completed. 23:47 Patient has correct armband on for positive identification. Placed in gown. Bed in low wh position. Call light in reach. Side rails up X 1. Pulse ox on. NIBP on. 23:50 Arm band placed on right wrist. 09/09 00:00 Inserted saline lock: 20 gauge in right antecubital area, using aseptic technique. Blood collected. 00:20 Oral contrast given. 00:35 Oral contrast reported to be complete. 02:21 CT completed. Patient tolerated procedure well. Patient moved to CT via stretcher. Patient moved back from CT. 02:28 CT Abd/Pelvis - PO and IV Contrast In Process Unspecified. EDMS 03:07 Nicholas Bo MD is Hospitalizing Provider. snw 05:11 No provider procedures requiring assistance completed. Patient admitted, IV remains in place. Administered Medications: 00:06 Drug: NS 0.9% 1000 ml Route: IV; Rate: 1 bolus; Site: right antecubital; 03:08 Follow up: Response: No adverse reaction; IV Status: Completed infusion 00:20 Drug: TORadol - Ketorolac 15 mg Route: IVP; Site: right antecubital; 03:08 Follow up: Response: No adverse reaction; Pain is decreased 00:24 Drug: fentaNYL (PF) 25 mcg Route: IVP; Site: right antecubital; 03:08 Follow up: Response: No adverse reaction; Pain is decreased; RASS: Alert and Calm (0) 03:20 Drug: NS 0.9% 1000 ml Route: IV; Rate: 125 ml/hr; Site: right antecubital; 04:32 Follow up: Response: No adverse reaction; IV Status: Infusion continued upon admission 03:22 Drug: Dilaudid 1 mg Route: IVP; Site: right antecubital; 04:32 Follow up: Response: No adverse reaction; Pain is decreased; RASS: Alert and Calm (0) 03:30 Drug: Mefoxin 1 grams {Note: Mefoxin Iv in 10ml syring given Provider modified order.} Route: IVPB; Infused Over: 30 mins; Site: right antecubital; 04:32 Follow up: Response: No adverse reaction; IV Status: Completed infusion Outcome: 03:08 Decision to Hospitalize by Provider. snw 05:11 Admitted to Med/surg accompanied by nurse, via wheelchair, room 229, with chart, Report called to Paulette Ngo RN 05:11 Condition: stable 05:11 Instructed on the need for admit. 05:11 Patient left the ED. Signatures: Dispatcher [employer] Avani Jeffery, YASMINE BURROUGHSP-Kerline Lam Ervin eh [place], [place]
--- NOTE | 2019-09-09 03:09 | EDPHYS ---
Physician Documentation [facility] Name: Fay Luna Age: 33 yrs Sex: Female : 1985 Arrival Date: 09/08/2019 Time: 23:27 Bed 15 Private MD: Martha Braswell ED Physician Real Leon HPI: 09/09 00:46 This 33 yrs old Female presents to ER via Ambulatory with complaints of snw Abdominal Pain. 00:46 The patient presents with abdominal pain in the epigastric area, in the right upper snw quadrant. Onset: The symptoms/episode began/occurred gradually, 1 month(s) ago, and became persistent. The symptoms radiate to the right flank. Associated signs and symptoms: Pertinent positives: nausea and vomiting. The symptoms are described as stabbing, waxing/waning. Severity of pain: At its worst the pain was severe in the emergency department the pain is unchanged. The patient has experienced a previous episode, last year. The patient has not recently seen a physician. 00:[address] Navarrete. 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 - Social history:: Smoking status: Patient uses tobacco products, denies chronic smoking, but will smoke occasionally. - Ebola Screening: : Patient negative for fever greater than or equal to 101.5 degrees Fahrenheit, and additional compatible Ebola Virus Disease symptoms Patient denies exposure to infectious person. ROS: 09/09 00:43 Constitutional: Negative for fever, chills, and weight loss, Eyes: Negative for injury, snw pain, redness, and discharge, ENT: Negative for injury, pain, and discharge, Neck: Negative for injury, pain, and swelling, Cardiovascular: Negative for chest pain, palpitations, and edema, Respiratory: Negative for shortness of breath, cough, wheezing, and pleuritic chest pain, Abdomen/GI: Positive for abdominal pain, nausea, vomiting, negative for diarrhea and constipation, Back: Negative for injury and pain, : Negative for injury, bleeding, discharge, and swelling, MS/Extremity: Negative for injury and deformity, Skin: Negative for injury, rash, and discoloration, Neuro: Negative for headache, weakness, numbness, tingling, and seizure, Psych: Negative for depression, anxiety, suicide ideation, homicidal ideation, and hallucinations. Exam: 00:42 Constitutional: This is a well developed, well nourished patient who is awake, alert, snw and in no acute distress. Head/Face: Normocephalic, atraumatic. Eyes: Pupils equal round and reactive to light, extra-ocular motions intact. Lids and lashes normal. Conjunctiva and sclera are non-icteric and not injected. Cornea within normal limits. Periorbital areas with no swelling, redness, or edema. ENT: Nares patent. No nasal discharge, no septal abnormalities noted. Tympanic membranes are normal and external auditory canals are clear. Oropharynx with no redness, swelling, or masses, exudates, or evidence of obstruction, uvula midline. Mucous membranes moist. Neck: Trachea midline, no thyromegaly or masses palpated, and no cervical lymphadenopathy. Supple, full range of motion without nuchal rigidity, or vertebral point tenderness. No Meningismus. Chest/axilla: Normal chest wall appearance and motion. Nontender with no deformity. No lesions are appreciated. Cardiovascular: Regular rate and rhythm with a normal S1 and S2. No gallops, murmurs, or rubs. Normal PMI, no JVD. No pulse deficits. Respiratory: Lungs have equal breath sounds bilaterally, clear to auscultation and percussion. No rales, rhonchi or wheezes noted. No increased work of breathing, no retractions or nasal flaring. Back: No spinal tenderness. No costovertebral tenderness. Full range of motion. Skin: Warm, dry with normal turgor. Normal color with no rashes, no lesions, and no evidence of cellulitis. MS/ Extremity: Pulses equal, no cyanosis. Neurovascular intact. Full, normal range of motion. Neuro: Awake and alert, GCS 15, oriented to person, place, time, and situation. Cranial nerves II-XII grossly intact. Motor strength 5/5 in all extremities. Sensory grossly intact. Cerebellar exam normal. Normal gait. Psych: Awake, alert, with orientation to person, place and time. Behavior, mood, and affect are within normal limits. 00:42 Abdomen/GI: Inspection: umbilical hernia without pain, Bowel sounds: normal, Palpation: mild abdominal tenderness, in the right upper quadrant, Indicators: Loredo's sign is positive. Vital Signs: 09/08 23:45 BP 114 / 72; Pulse 91; Resp 18; Temp 98.2; Pulse Ox 99% ; Weight 58.97 kg; Height 5 ft. wh 5 in. (165.10 cm); Pain 7/10; 09/09 00:42 BP 91 / 63; Pulse 69; Resp 18; Pulse Ox 100% on R/A; wh 01:30 BP 100 / 73; Pulse 64; Resp 18; Pulse Ox 100% on R/A; wh 02:30 BP 102 / 72; Pulse 66; Resp 18; Pulse Ox 100% on R/A; wh 03:32 BP 130 / 83; Pulse 80; Resp 18; Pulse Ox 100% ; wh 04:30 BP 109 / 70; Pulse 75; Resp 16; Pulse Ox 99% ; wh 09/08 23:45 Body Mass Index 21.63 (58.97 kg, 165.10 cm) wh MDM: 09/08 23:56 Patient medically screened. snw 09/09 03:08 Data reviewed: vital signs, nurses notes. Data interpreted: Pulse oximetry: on room air snw is 100 %. Interpretation: normal. Counseling: I had a detailed discussion with the patient and/or guardian regarding: the historical points, exam findings, and any diagnostic results supporting the discharge/admit diagnosis, lab results, radiology results, the need for further work-up and treatment in the hospital. Physician consultation: Nicholas Bo MD was called at 03:09, was contacted at 03:09, regarding admission, to the telemetry unit. 09/08 23:39 Order name: Urine Culture snw 09/08 23:39 Order name: Urine Microscopic Only; Complete Time: 00:37 snw 09/08 23:57 Order name: Basic Metabolic Panel; Complete Time: 00:48 snw 09/08 23:57 Order name: CBC with Diff; Complete Time: 00:48 snw 09/08 23:57 Order name: Creatinine for Radiology; Complete Time: 00:48 snw 09/08 23:57 Order name: Hepatic Function; Complete Time: 00:48 snw 09/08 23:57 Order name: Lipase; Complete Time: 00:48 snw 09/09 00:07 Order name: Urine Dipstick--Ancillary (enter results) tx5 09/09 00:07 Order name: Urine --Ancillary (enter results) [facility] 09/09 00:12 Order name: Urine --Ancillary [facility] 09/09 00:12 Order name: Urine Dipstick-Ancillary [facility] 09/09 03:45 Order name: CBC with Automated Diff [facility] 09/09 03:45 Order name: CBC with Automated Diff [facility] 09/09 03:45 Order name: Comprehensive Metabolic Panel [facility] 09/08 23:39 Order name: Urine Test (obtain specimen); Complete Time: 23:56 snw 09/09 00:12 Order name: CT Abd/Pelvis - PO and IV Contrast snw 09/09 03:45 Order name: CONS Physician Consult [facility] 09/09 03:45 Order name: NPO [facility] 09/09 03:45 Order name: Comprehensive Metabolic Panel [facility] 09/09 03:45 Order name: Magnesium [facility] 09/09 03:45 Order name: Magnesium [facility] 09/09 03:45 Order name: Phosphorus [facility] 09/09 03:45 Order name: Phosphorus [facility] 09/09 03:48 Order name: Urine Drug Screen [facility] 09/08 23:39 Order name: Urine Dipstick-Ancillary (obtain specimen); Complete Time: 23:56 snw 09/08 23:57 Order name: Labs collected and sent; Complete Time: 00:06 snw Administered Medications: 00:06 Drug: NS 0.9% 1000 ml Route: IV; Rate: 1 bolus; Site: right antecubital; 03:08 Follow up: Response: No adverse reaction; IV Status: Completed infusion 00:20 Drug: TORadol - Ketorolac 15 mg Route: IVP; Site: right antecubital; 03:08 Follow up: Response: No adverse reaction; Pain is decreased 00:24 Drug: fentaNYL (PF) 25 mcg Route: IVP; Site: right antecubital; 03:08 Follow up: Response: No adverse reaction; Pain is decreased; RASS: Alert and Calm (0) 03:20 Drug: NS 0.9% 1000 ml Route: IV; Rate: 125 ml/hr; Site: right antecubital; 04:32 Follow up: Response: No adverse reaction; IV Status: Infusion continued upon admission 03:22 Drug: Dilaudid 1 mg Route: IVP; Site: right antecubital; 04:32 Follow up: Response: No adverse reaction; Pain is decreased; RASS: Alert and Calm (0) 03:30 Drug: Mefoxin 1 grams {Note: Mefoxin Iv in 10ml syring given Provider modified order.} Route: IVPB; Infused Over: 30 mins; Site: right antecubital; 04:32 Follow up: Response: No adverse reaction; IV Status: Completed infusion Disposition: 06:02 Co-signature as Attending Physician, Real Leon MD I agree with the assessment and tw4 plan of care. Disposition: 09/09/19 03:08 Hospitalization ordered by Nicholas Bo for Inpatient Admission. Preliminary diagnosis is Acute cholecystitis. - Bed requested for Telemetry/MedSurg (Inpatient). - Status is Inpatient Admission. - Condition is Stable. - Problem is an acute exacerbation. - Symptoms have improved. UTI on Admission? Yes Signatures: Dispatcher [employer] [facility] Avani Pierre FNP-C FNP-Audra Mohr Real Leon MD MD tw4 Ann Orozco ar5 Corrections: (The following items were deleted from the chart) 04: 03:08 Hospitalization Ordered by Nicholas Bo MD for Inpatient Admission. Preliminary ar5 diagnosis is Acute cholecystitis. Bed requested for Telemetry/MedSurg (Inpatient). Status is Inpatient Admission. Condition is Stable. Problem is an acute exacerbation. Symptoms have improved. UTI on Admission? Yes. snw 05:11 04:28 09/09/2019 03:08 Hospitalization Ordered by Nicholas Bo MD for Inpatient Admission. Preliminary diagnosis is Acute cholecystitis. Bed requested for Telemetry/MedSurg (Inpatient). Status is Inpatient Admission. Condition is Stable. Problem is an acute exacerbation. Symptoms have improved. UTI on Admission? Yes. ar5
[2019-09-09] MEDS ORDERED: HYDROMORPHONE HCL 2 MG/ML inj ONE (03:22)
[2019-09-09] MEDS ORDERED: CEFOXITIN/SWI 1gm 1 GM/10 ML SYR ONE (03:22)
[2019-09-09] MEDS ORDERED: ACETAMINOPHEN 500 MG TAB PO PRN (03:37)
[2019-09-09] MEDS ORDERED: ONDANSETRON 4 MG/2 ML VIAL IV PRN (03:37)
[2019-09-09] MEDS ORDERED: SODIUM CHLORIDE 0.9% 10ML INJ IV PRN (03:46)
--- NOTE | 2019-09-09 03:46 | P.HP ---
Certification for Inpatient Patient admitted to: Inpatient With expected LOS: >2 Midnights Patient will require the following post-hospital care: None Practitioner: I am a practitioner with admitting privileges, knowledge of patient current condition, hospital course, and medical plan of care. Services: Services provided to patient in accordance with Admission requirements found in Title 42 Section 412.3 of the Code of Federal Regulations Patient History Date of Service: 09/09/19 Reason for admission: Abdominal pain History of Present Illness: 33 yo female with no significant past medical history admitted with abdominal pain which has been going on for the last 1 month which progressively worse in the last 2 days and was brought to the ER. Pain is located in the right upper quadrant and epigastric region ,nonradiating, sharp, 10/10 in severity. Associated with some nausea but no vomiting . No fever no chills patient was assessed in the ER and was found to be having possible cholecystitis and is admitted for further management Allergies No Known Allergies Allergy (Verified 09/10/18 03:07) Home medications list reviewed: Yes Home Medications: Ferrous Sulfate [Iron] 325 mg PO DAILY #30 tablet 09/11/18 Pantoprazole [Protonix Tab] 40 mg PO DAILY #30 tab 09/11/18 - Past Medical/Surgical History Diabetic: No Past Medical History: Reviewed- Non-Contributory -: umbilical hernia Past Surgical History: Reviewed- Non-Contributory -: cyst removal both breast - Family History Family History: Reviewed- Non-Contributory - Family History Mother -: Cancer Notes: breast ca Father -: Heart disease - Social History Smoking Status: Current some day smoker Alcohol use: No CD- Drugs: No Caffeine use: Yes Review of Systems 10-point ROS is otherwise unremarkable Physical Examination - Vital Signs Temperature: 98.1 F Blood Pressure: 166/88 Pulse: 78 Respirations: 18 - Physical Exam General: Alert, Oriented x3, Mild distress HEENT: Atraumatic, Normocephalic Neck: Supple, 2+ carotid pulse no bruit Respiratory: Clear to auscultation bilaterally, Normal air movement Cardiovascular: Normal pulses, Regular rate/rhythm Capillary refill: <2 Seconds Gastrointestinal: Tenderness, Guarding Musculoskeletal: No clubbing, No swelling Integumentary: No rashes Neurological: Normal speech, Normal strength at 5/5 x4 extr Lymphatics: No axilla or inguinal lymphadenopathy Urinary: Other (no bladder distention ) External genitalia: Deferred Rectal: Deferred - Studies Laboratory Data (last 24 hrs) 09/08/19 23:59: Creatinine 0.64 09/08/19 23:59: WBC 7.0, Hgb 10.8 L, Hct 32.3 L, Plt Count 359 09/08/19 23:59: Sodium 141, Potassium 3.7, BUN 14, Creatinine 0.66, Glucose 121 H, Total Bilirubin < 0.1 L, AST 12 L, ALT 14, Alkaline Phosphatase 37 L, Lipase 113 Assessment and Plan - Problems (Diagnosis) (1) Cholecystitis Current Visit: Yes Status: Acute (2) UTI (urinary tract infection) Current Visit: Yes Status: Acute (3) Abdominal pain Current Visit: No Status: Acute Qualifiers: Abdominal location: periumbilical Qualified Code(s): R10.33 - Periumbilical pain - Plan Acute cholecystitis UTI Intractable abdominal pain Plan Pain control NPO IV fluids Right upper quadrant ultrasound Antibiotic urine cultures Surgical consult GI/DVT prophylaxis - Advance Directives Does patient have a Living Will: No Does patient have a Durable POA for Healthcare: No Time Spent Managing Pts Care (In Minutes): 42
[2019-09-09] MEDS: NA CHLORIDE 0.9% 1,000 ML IV SCH ×2 (04:00→13:37)
[2019-09-09 05:11] VITALS: BMI 21.6
[2019-09-09] MEDS: HYDROMORPHONE HCL 1 MG/ML INJ IV PRN ×5 (05:14→22:12)
[2019-09-09 05:49] LABS: Barbiturates NEGATIVE (NEGATIVE); Benzodiazepines NEGATIVE (NEGATIVE); Cocaine NEGATIVE (NEGATIVE); METHAMPHETAM NEGATIVE (NEGATIVE); Methadone NEGATIVE (NEGATIVE); Opiates NEGATIVE (NEGATIVE); Phencyclidine NEGATIVE (NEGATIVE); THC Cannibis NEGATIVE (NEGATIVE)
[2019-09-09] MEDS: PIPER/TAZO/NS 3.375gm 3.375 GM/100 ML BAG IVPB SCH ×2 (09:00→16:09)
[2019-09-09] MEDS: PANTOPRAZOLE 40 MG INJ IVP SCH ×2 (09:17→22:12)
--- NOTE | 2019-09-09 13:16 | CON ---
Date of Consultation: 09/09/2019 Reason For Consultation: Abdominal pain. History Of Present Illness: Patient is a 33-year-old female, who was admitted with acute onset of up per right-sided abdominal pain associated with nausea, vomiting, constipation. No diarrhea. No bloo d in her stool. No dysuria or hematuria. No sore throat, runny nose, cough, headaches, or dizziness . No chest pain. No fever or chills. It is not postprandial in nature. She has had similar episod es in the past a year ago exactly and she had an ultrasound done that was negative at that time. Review of Systems: Otherwise unremarkable. Past Medical History: Negative. Past Surgical History: Negative; however, she does have an umbilical hernia. Social History: She does smoke occasionally. Denies drinking or doing recreational drugs. Family History: Noncontributory. Physical Examination: Vital Signs: Stable. Her temperature is slightly elevated at 99.3. General: She is awake, alert, and oriented x3. Head and Neck: Cranial nerves 2 through 12 are grossly within normal limits. No neck masses. No JV D. Throat clear. Neck is supple. Chest: Clear. Heart: S1, S2. Abdomen: Soft. Positive right upper quadrant tenderness. Positive Loredo's sign with rebound and s light rigidity involuntary. Remainder of the abdomen is soft. In abdomen, she does have a small sup raumbilical umbilical hernia, which is reducible. Extremities: Adequately perfused. Nontender. Neuro: Nonfocal. Laboratory Data: Her white count is 7000. There is no left shift. Chemistry reviewed and her elect rolytes reviewed and essentially within normal limits. Glucose slightly elevated. Her LFTs and lipa se are within normal limits. CT of the abdomen and pelvis reviewed and patient has distended gallbla dder with some fluid around it. Assessment: Abdominal pain, etiology likely gallbladder disease. Plan: This patient did have an ultrasound done a year ago, which was negative. We will await the ul trasound that has been ordered and if it is negative for gallstones, she would benefit from a HIDA sc an and GI evaluation. Continue IV antibiotics. We will do serial abdominal exams. I will make furt her recommendations as the case develops. LYNDA/ISABELLA Voice ID: [id number] Report ID: [id number]
--- NOTE | 2019-09-09 16:21 | RAD REPORT ---
EXAM DESCRIPTION: US - Abdomen Exam Limited - 09/09/2019 4:11 pm CLINICAL HISTORY: Cholecystitis COMPARISON: Abdomen Pelvis W Contrast dated 09/09/2019 FINDINGS: Well filled gallbladder is identified. No gallstones or measurable quantity of sludge. Wal l thickening is present with pericholecystic fluid. Common bile duct is normal with no common duct st one identified. IMPRESSION: Gallbladder wall thickening and pericholecystic fluid without stones or sludge. Acalculus cholecystitis is primary concern. Given the absence of gallstones, secondary gallbladder re sponse to a systemic process in the peritoneal cavity would be possible as well. .
[2019-09-10] MEDS: PIPER/TAZO/NS 3.375gm 3.375 GM/100 ML BAG IVPB SCH ×2 (00:15→09:00)
[2019-09-10] MEDS: NA CHLORIDE 0.9% 1,000 ML IV SCH ×2 (00:15→09:33)
[2019-09-10 03:31] VITALS: O2SAT 100
[2019-09-10 04:40] LABS: Absolute Lymphocytes (CBC) 2.5 K/uL (0.7-4.9); Basophils % 0.8 % (0-1.3); Hematocrit 29.2 % (36.0-45.0); Lymphocytes % 42.3 % (15.3-44.8); MPV 7.5 fL (7.6-11.3); RBC Red Blood Cell Count 3.02 M/uL (3.86-4.86)
[2019-09-10 04:56] LABS: ALT/SGPT 9 U/L (12-78); AST/SGOT 8 U/L (15-37); Albumin 2.4 g/dL (3.4-5.0); Alkaline Phosphatase 24 U/L (45-117); BUN Blood Urea Nitrogen 5 mg/dL (7-18); Bicarbonate 27 mmol/L (21-32); Bilirubin Total 0.3 mg/dL (0.2-1.0); Glucose Level 92 mg/dL (74-106); Magnesium 2.2 mg/dL (1.8-2.4); Phosphorus 3.3 mg/dL (2.5-4.9); Protein, Total 5.6 g/dL (6.4-8.2); Sodium Level 143 mmol/L (136-145)
--- NOTE | 2019-09-10 07:20 | RAD REPORT ---
EXAM DESCRIPTION: NM - Hepatobiliary System W/ Ph - 09/10/2019 6:53 am CLINICAL HISTORY: Abdominal pain TECHNIQUE: The patient was administered 5.9 millicuries technetium Choletec intravenous and images o f the abdomen obtained for 43 minutes. Patient was given 1.2 micrograms Kinevac intravenously and brooke ges of the gallbladder obtained for 30 minutes FINDINGS: Liver demonstrates prompt radiotracer uptake. Activity is seen within the gallbladder by 10 minutes. Uptake is seen within small bowel. The gallbla dder is mildly distended After the administration of cck gallbladder ejection fraction equals 68 % (normal values greater than 35% Patient was asymptomatic prior to CCK. During the administration patient complained of pain 6 out of 10. Prior to the CCK patient complained of pain 4 out of 10 IMPRESSION: No evidence of acute cholecystitis Gallbladder ejection fraction equals 68%
[2019-09-10] MEDS: PANTOPRAZOLE 40 MG INJ IVP SCH (09:32)
[2019-09-10] MEDS: HYDROMORPHONE HCL 1 MG/ML INJ IV PRN (09:33)
[2019-09-10 14:19] VITALS: BP 98/64; TEMP 98.1
--- NOTE | 2019-09-10 16:01 | PN ---
Date of Progress Note: 09/10/2019 Subjective: Patient is awake, alert. No complaints. Pain is actually better. She had an ultrasoun d yesterday, did not show gallstones or sludge, did show some mild gallbladder wall thickening and pe richolecystic fluid. She had a HIDA scan this morning, which showed ejection fraction 68%, and no si gnificant increase in pain with CCK injection. She is hungry. She wants to eat. We do not have GI availability in the hospital. Her vital signs are stable. She is afebrile. White count is normal. Abdomen is reagent tender, but is better than yesterday. There is no peritonitis. Assessment: Abdominal pain, etiology unclear at this time. Requires GI workup for the next step. Recommendations: We will advance her diet to GI soft. If tolerated, she can be discharged home on C ipro and Flagyl and I advised her that she needs to follow up with a GI doctor and after that workup was done and should that be negative. She is still having pain. She can come back to me for a diagn ostic laparoscopy and we can assess the situation at that time. There is no need for any acute surgi bobby intervention at this time. Plan of discharge was discussed in detail with the patient and [facility] staff. /MODL Voice ID: [id number] Report ID: [id number]
--- NOTE | 2019-09-11 08:53 | DS ---
Date of Discharge: 09/10/2019 Discharge Diagnoses: 1.? cholecystitis. 2.Abdominal pain, resolved. 3.Urinary tract infection, ruled out. Consult: General Surgery. Procedures: 1.CT of the abdomen and pelvis showed no acute abdomen, but official reading is still pending. 2.Ultrasound of the abdomen showed gallbladder thickening and pericholecystic fluid without stones o r sludge, acalculous cholecystitis is the primary concern. Secondly, gallbladder response to systemi c response and peritoneal process in peritoneal cavity would be possible. HIDA scan was negative. For history of present illness, please refer to history and physical note. Hospital Course: Initially, patient presented to the hospital with a history of abdominal pain for 1 month, but this got worse over the last 2 days. It was in the right upper quadrant, epigastric, non radiating. CT scan was unremarkable. Ultrasound of the abdomen showed acalculous cholecystitis ? sy stemic etiology. General Surgery consulted Dr. Tomlin, who ordered HIDA scan. HIDA scan was normal w ith ejection fraction of 68%. Patient was initially started on antibiotic with Zosyn. Culture done was negative so far. At the time of discharge, UA was questionable positive, but urine culture was g reater than 100,[address] Tomlin advised the patient need a GI followup and evaluation. Patien t's pain subsided. Dr. Tomlin switched her antibiotics to Cipro and Flagyl for a total of 10 days and he gave her Tylenol No. 3, advised to follow up with GI as outpatient. He will give a phone number for GI. Patient will need to follow up with primary care physician in 1 week. Discharge Condition: Stable. Discharge Diet: Advance as tolerated. Discharge Medications: Cipro 500 mg twice a day for 10 days, Flagyl 500 mg every 6 hours for 10 days as well, Codeine with Tylenol No. 3 one tablet every 4 hours p.r.n. for pain. Patient okay to shanthi nue her home meds with iron tablet as well as PPI. Physical Examination: Vital Signs: Today blood pressure is 92/62, respiratory rate 18, pulse 68, temperature 98.2. General: Patient is alert and oriented x3. Does not look in any distress. HEENT: Atraumatic, normocephalic. PERRLA. Oral mucosa is moist. Neck: Supple. No JVD. No carotid bruits. Chest: Clear to auscultation. Good air entry. Heart: Regular rate and rhythm. S1, S2 normal. No gallop or murmur. Abdomen: Soft, minimal tenderness in the right upper quadrant. There is no guarding or rebound. Po sitive bowel sounds. Extremities: No clubbing, no cyanosis, edema. No calf tenderness. Neurologic: Grossly intact. TESFAYE/ISABELLA Voice ID: [id number] Report ID: [id number]
--- NOTE | 2019-09-11 09:32 | RAD REPORT ---
EXAM DESCRIPTION: CT - Abdomen Pelvis W Contrast - 09/09/2019 2:55 am CLINICAL HISTORY: The patient is 33 years old and is Female; ABD PAIN TECHNIQUE: Axial computed tomography images of the abdomen and pelvis with intravenous contrast. S agittal and coronal reformatted images were created and reviewed. This CT exam was performed using one or more of the following dose reduction techniques: automated exposure control, adjustment of t he mA and/or kV according to patient size, and/or use of iterative reconstruction technique. DLP: 534 mGy*cm COMPARISON: CT abdomen and pelvis with IV contrast dated September 09, 2018. FINDINGS: LUNG BASES: Lung bases are clear. Minimal right lung base atelectasis. HEART: The heart is normal in size. ABDOMEN: LIVER: Periportal edema. GALLBLADDER AND BILE DUCTS: Distention of the gallbladder with small amount of pericholecystic flu id. No ductal dilation. PANCREAS: Unremarkable. No mass. No ductal dilation. SPLEEN: Unremarkable. No splenomegaly. ADRENALS: Unremarkable. No mass. KIDNEYS AND URETERS: Unremarkable. No solid mass. No hydronephrosis. STOMACH AND BOWEL: Enteric contrast in the small bowel. Severe stool burden throughout the large b owel. No mucosal thickening. PELVIS: APPENDIX: The appendix is not well seen. BLADDER: Unremarkable. No mass. REPRODUCTIVE: 3.3 cm left ovarian cyst. ABDOMEN and PELVIS: INTRAPERITONEAL SPACE: Free fluid in the eliu hepatis and upper abdomen. Ascites containing ventral hernia. No free air. BONES/JOINTS: No acute fracture. No dislocation. SOFT TISSUES: Mild soft tissue anasarca. VASCULATURE: Unremarkable. No abdominal aortic aneurysm. LYMPH NODES: Unremarkable. No enlarged lymph nodes. IMPRESSION: 1. Distention of the gallbladder with pericholecystic fluid, periportal edema and mild abdominal ascites. Constellation of findings concerning for acute cholecystitis. Right upper quadran t ultrasound is recommended. 2. 3.3 cm left ovarian cyst. No follow-up imaging is recommended. Reference: US recommendations based on Radiology 2010 Sep;256(3):943-54; CT/MR recommendations based on J Am Josue Radiol 2013;10:675-681. 3. Severe stool burden. Cortical constipation. Electronically signed by: Jovan Vann DO 09/09/2019 2:50 AM APPRENTICE MACHINIST OUTSIDE Due to temporary technical issues with the PACS/Fluency reporting system, reports are being signed by the in house radiologist as a courtesy to ensure prompt reporting. The interpreting radiologist is f ully responsible for the content of the report.
== END 2019-09-10 14:16 | disposition home or self-care (01) | DRG 445 ==
LOC: ER 23:24 → ERHOLD 09-09 03:39 → 2ND 09-09 04:42
PROVIDERS: ADMIT Family Medicine; ATTEND Internal Medicine
DX: K81.0 Acute cholecystitis (principal); N39.0 Urinary tract infection, site not specified; R10.9 Unspecified abdominal pain; F17.200 Nicotine dependence, unspecified, uncomplicated
CPT/HCPCS: 36415; 74177; 76705; 78227; 80048; 80053; 80076; 80307; 81003; 81015; 81025; 83690; 83735; 84100; 85025; 87040; 87086; 87088; 96361; 96365; 96375; 99285; A9537; C9113; J1170; J2405; J2543; J2805; J3010; J7030; Q9967